=== PATIENT | male | born 1980 | race African-American/Black ===

== ENCOUNTER 2016-07-11 07:48 | Emergency (ER) | payer SELFPAY ==
[~2016-07-11] VITALS: Ht 185.4 cm; Wt 94.3 kg
[2016-07-11 07:59] VITALS: BP 139/81
--- NOTE | 2016-07-11 08:21 | RAD ---
Three-view left hand radiographs 07/11/2016 Clinical history: Right fifth finger pain. Injury one month ago. AP, lateral and oblique digital radiographs of the left hand were obtained. No fracture or dislocation of the left hand is seen. Mild degenerative changes are seen involving the interphalangeal joints particularly involving the left fifth finger. No radiopaque foreign body is seen. Impression: Mild degenerative changes are seen involving the left fifth finger. No acute osseous abnormality is seen.
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
[2016-07-11] MEDS ORDERED: NAPR500T8 PO (08:44)
== END 2016-07-11 09:21 | disposition home or self-care (01) ==
LOC: ER 07:48
DX: S60.222A Contusion of left hand, initial encounter (principal); J45.909 Unspecified asthma, uncomplicated; W22.03XA Walked into furniture, initial encounter; Y93.89 Activity, other specified; Y99.8 Other external cause status; Y92.89 Other specified places as the place of occurrence of the external cause
CPT/HCPCS: 73130; 99284-25